=== PATIENT | male | born 2000 | race Hispanic/Latino ===

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

== ENCOUNTER 2023-06-10 19:07 | Emergency (ER) | payer SELFPAY ==
[2023-06-10 20:57] LABS: Absolute Lymphocytes (CBC) 1.4 K/uL (0.7-4.9); Hematocrit 43.1 % (39.6-49.0); Lymphocytes % 15.1 % (15.3-44.8); MCV 88.2 fL (80-100); MPV 9.4 fL (7.6-11.3); Platelets 152 thou/uL (152-406); RBC Red Blood Cell Count 4.89 M/uL (4.33-5.43); Specific Gravity 1.012 (1.005-1.030); Urine Bilirubin NEGATIVE (Negative); Urine Blood Negative (Negative); Urine Clarity Clear (Clear); Urine Color Colorless (Yellow); Urine Glucose NEGATIVE (Negative); Urine Protein NEGATIVE (Negative); Urine Urobilinogen Normal (Normal)
--- NOTE | 2023-06-10 21:16 | RAD REPORT ---
EXAM DESCRIPTION: CT - Stone Protocol - 06/10/2023 8:36 pm CLINICAL HISTORY: right flank pain COMPARISON: No comparisons TECHNIQUE: Thin cut axial CT imaging of the abdomen and pelvis was performed without IV contrast. Mu ltiplanar reformats were generated and reviewed. All CT scans are performed using dose optimization technique as appropriate and may include automated exposure control or mA/KV adjustment according to patient size. FINDINGS: No suspicious findings in the lung bases. The liver, spleen, adrenal glands, and pancreas show no suspicious findings. Gallbladder and biliary tree are also without suspicious finding. Symmetric renal contour, without suspicious parenchymal findings within limits of noncontrast techniq ue. No evidence of radiopaque calculi or hydroureteronephrosis. No dilated bowel loops or bowel wall thickening. No free air, free fluid or inflammatory stranding. N o hernia, mass or bulky lymphadenopathy. The urinary bladder is without significant finding. No suspicious bony findings. IMPRESSION: No acute intra-abdominal process.
[2023-06-10 21:19] LABS: Albumin 3.8 g/dL (3.4-5.0); Bilirubin Total 0.2 mg/dL (0.2-1.0); Protein, Total 7.7 g/dL (6.4-8.2)
[2023-06-10 21:20] LABS: Potassium 3.8 mEq/L (3.5-5.1)
[2023-06-10] MEDS ORDERED: CYCLOBENZAPRINE 10 MG TAB ONE (21:55)
[2023-06-10] MEDS ORDERED: KETOROLAC 30 MG/ML INJ ONE (21:55)
--- NOTE | 2023-06-10 22:24 | EDPHYS ---
Physician Documentation [facility] Name: Alexsander Mcgowan Age: 23 yrs Sex: Male : 2000 Arrival Date: 06/10/2023 Time: 19:07 Bed 11 Private MD: ED Physician Dm Lara HPI: 06/10 20:00 This 23 yrs old Male presents to ER via Ambulatory with complaints of cp Abdominal Pain. 20:00 The patient presents with abdominal pain right flank. cp Historical: - Allergies: 19:32 No Known Allergies; kd3 - Immunization history:: Adult Immunizations up to date. - Social history:: Smoking status: Patient denies any tobacco usage or history of. Vital Signs: 19:31 BP 126 / 78; Pulse 58; Resp 17; Temp 99.6(O); Pulse Ox 100% ; Weight 63.5 kg; Height 5 kd3 ft. 7 in. ; 21:48 BP 128 / 70; Pulse 58; Resp 16; Pulse Ox 100% on R/A; Pain 10/10; iw 22:33 BP 113 / 73; Pulse 51; Resp 18; Pulse Ox 100% on R/A; Pain 3/10; iw 19:31 Body Mass Index 21.93 (63.50 kg, 170.18 cm) kd3 21:48 Pain Scale: Adult iw 22:33 Pain Scale: Adult iw MDM: 19:44 Patient medically screened. 06/10 19:45 Order name: CBC with Diff; Complete Time: 21:21 06/10 21:22 Interpretation: Normal except: NIRU% 74.5; LYM% 15.1. 06/10 19:45 Order name: CMP; Complete Time: 21:21 06/10 21:22 Interpretation: Normal except: CL 108; GLOB 3.9; A/G 1.0. 06/10 19:45 Order name: Lipase; Complete Time: 21:21 06/10 21:42 Interpretation: Reviewed. 06/10 19:45 Order name: Urinalysis w/ reflexes; Complete Time: 21:21 06/10 21:42 Interpretation: Reviewed. 06/10 19:45 Order name: CT Stone Protocol; Complete Time: 21:21 06/10 21:22 Interpretation: Report reviewed. 06/10 21:23 Order name: XRAY Chest (1 view) cp 06/10 19:45 Order name: IV Saline Lock cp 06/10 19:45 Order name: Labs collected and sent cp Administered Medications: 21:48 Drug: Ketorolac IVP 15 mg IVP once Route: IVP; Site: left antecubital; iw 22:38 Follow up: Response: No adverse reaction; Pain is decreased iw 21:48 Drug: Cyclobenzaprine PO 10 mg PO once Route: PO; iw 22:38 Follow up: Response: No adverse reaction; Pain is decreased iw Disposition Summary: 06/10/23 22:23 Discharge Ordered Notes: Location: Home cp Problem: new cp Symptoms: have improved cp Condition: Stable cp Diagnosis - Other abdominal pain cp Followup: cp - With: Private Physician - When: 2 - 3 days - Reason: Worsening of condition Discharge Instructions: - Discharge Summary Sheet cp - Musculoskeletal Pain cp Forms: - Medication Reconciliation Form cp - Thank You Letter cp - Antibiotic Education cp - Prescription Opioid Use cp - Patient Portal Instructions cp - Leadership Thank You Letter cp Prescriptions: - Naprosyn 500 mg Oral tablet - take 1 tablet ORAL route 2 times per day take with food; 20 tablet; Refills: 0, cp Product Selection Permitted - Cyclobenzaprine 10 mg Oral tablet - take 1 tablet ORAL route every 8 hours As needed; 20 tablet; Refills: 0, cp Product Selection Permitted Addendum: 06/12/2023 19:34 I was immediately available on-site in the Emergency Department for consultation in the m s3 care of the patient. Signatures: Dispatcher [employer] Mindy Earl RN RN iw Page, Corey, PA PA cp Sims, Marcus, DO DO ms3 Terrie Tolbert RN RN kd3
--- NOTE | 2023-06-10 22:24 | ER ---
Nurse's Notes [facility] Name: Alexsander Mcgowan Age: 23 yrs Sex: Male : 2000 Arrival Date: 06/10/2023 Time: 19:07 Bed 11 Private MD: Diagnosis: Other abdominal pain Presentation: 06/10 19:32 Coronavirus screen: Vaccine status: Patient reports receiving the 2nd dose of the covid kd3 vaccine. Ebola Screen: No symptoms or risks identified at this time. Initial Sepsis Screen: Does the patient meet any 2 criteria? No. Patient's initial sepsis screen is negative. Does the patient have a suspected source of infection? No. Patient's initial sepsis screen is negative. Risk Assessment: Do you want to hurt yourself or someone else? Patient reports no desire to harm self or others. Onset of symptoms was June 10, 2023. 19:32 Method Of Arrival: Ambulatory 3 19:32 Acuity: ELVIN 3 kd3 19:32 Chief complaint: Patient states: My right upper side area is hurting. It has hurt for 2 iw days. I don't think it is my stomach. It just started to hurt randomly. It does go into my back. I do not feel any pain with urination. Triage Assessment: 19:32 General: Appears in no apparent distress. Behavior is calm, cooperative. Pain: kd3 Complains of pain in right upper quadrant. GI: Abdomen is non-distended. Historical: - Allergies: 19:32 No Known Allergies; kd3 - Immunization history:: Adult Immunizations up to date. - Social history:: Smoking status: Patient denies any tobacco usage or history of. Screenin:00 [facility] ED Fall Risk Assessment (Adult) History of falling in the last 3 months, iw including since admission No falls in past 3 months (0 pts) Confusion or Disorientation No (0 pts) Intoxicated or Sedated No (0 pts) Impaired Gait No (0 pts) Mobility Assist Device Used No (0 pt) Altered Elimination No (0 pt) Score/Fall Risk Level 0 - 2 = Low Risk Maintained a safe environment, Provided non-skid footwear, Hourly rounding (assess needs \T\ fall precautionary measures) done. Abuse screen: Denies threats or abuse. Nutritional screening: No deficits noted. Tuberculosis screening: No symptoms or risk factors identified. Assessment: 20:00 Pain: Complains of pain in abdomen and right upper quadrant Pain radiates to back Pain iw currently is 10 out of 10 on a pain scale. Quality of pain is described as sharp, shooting, Pain began 2-3 days ago. Is continuous, Aggravated by exercise, repositioning. Neuro: Level of Consciousness is awake, alert, obeys commands, Oriented to person, place, time, situation, Appropriate for age. Cardiovascular: Capillary refill < 3 seconds Patient's skin is warm and dry. Respiratory: Airway is patent Respiratory effort is even, unlabored, Respiratory pattern is regular, symmetrical. GI: Bowel sounds present X 4 quads. Abd is soft X 4 quads. 22:34 General: Appears uncomfortable, well groomed, well developed, well nourished, Behavior iw is calm, cooperative, appropriate for age, Reports My right upper side area is hurting. It has hurt for 2 days. I don't think it is my stomach. It just started to hurt randomly. It does go into my back. I do not feel any pain with urination. Vital Signs: 19:31 BP 126 / 78; Pulse 58; Resp 17; Temp 99.6(O); Pulse Ox 100% ; Weight 63.5 kg; Height 5 kd3 ft. 7 in. ; 21:48 BP 128 / 70; Pulse 58; Resp 16; Pulse Ox 100% on R/A; Pain 10/10; iw 22:33 BP 113 / 73; Pulse 51; Resp 18; Pulse Ox 100% on R/A; Pain 3/10; iw 19:31 Body Mass Index 21.93 (63.50 kg, 170.18 cm) kd3 21:48 Pain Scale: Adult iw 22:33 Pain Scale: Adult iw ED Course: 19:11 Patient arrived in ED. rg4 19:12 Olegario Mancera PA is PHCP. cp 19:12 Dm Lara DO is Attending Physician. cp 19:32 Triage completed. kd3 19:32 Arm band placed on right wrist. kd3 20:00 Patient has correct armband on for positive identification. Bed in low position. Call iw light in reach. Side rails up X 1. Provided Education on: POC. Verbalized understanding.. 20:00 No provider procedures requiring assistance completed. Flushed left antecubital. iw 20:38 CT Stone Protocol In Process Unspecified. EDMS 20:54 Inserted saline lock: 20 gauge in left antecubital area, using aseptic technique. Blood rv collected. 21:38 Mindy Cortez, RN is Primary Nurse. iw 21:55 XRAY Chest (1 view) In Process Unspecified. EDMS 22:37 IV discontinued, intact, bleeding controlled, No redness/swelling at site. Pressure iw dressing applied. Administered Medications: 21:48 Drug: Ketorolac IVP 15 mg IVP once Route: IVP; Site: left antecubital; iw 22:38 Follow up: Response: No adverse reaction; Pain is decreased iw 21:48 Drug: Cyclobenzaprine PO 10 mg PO once Route: PO; iw 22:38 Follow up: Response: No adverse reaction; Pain is decreased iw Medication: 20:00 VIS not applicable for this client. iw Outcome: 22:23 Discharge ordered by MD. cp 22:37 Discharged to home ambulatory, iw 22:37 Condition: stable 22:37 Discharge instructions given to patient, Instructed on discharge instructions, follow up and referral plans. medication usage, Demonstrated understanding of instructions, follow-up care, medications, Prescriptions given X 2, 22:37 Patient left the ED. iw Signatures: Dispatcher [employer] EDMS Mindy Cortez, RN RN iw Olegario Mancera PA PA cp Garcia, Rubi rg4 Frank Rivera RN RN Terrie Tolbert RN RN kd3 Corrections: (The following items were deleted from the chart) 22:34 19:32 Chief complaint: Patient states: My right upper side area is hurting. It has hurt iw for 2 days. I don't think it is my stomach. It just started to hurt randomly. It does go into my back. I do not feel any pain with urination. kd3
--- NOTE | 2023-06-10 23:02 | RAD REPORT ---
EXAM DESCRIPTION: Dandy Single View06/10/2023 9:53 pm CLINICAL HISTORY: right flank pain COMPARISON: No comparisons TECHNIQUE: Portable AP view of the chest. FINDINGS: The lungs are clear. No pneumothorax or effusion. The cardiomediastinal contours are unre markable. IMPRESSION: No acute cardiopulmonary process.
[2023-06-10 23:03] VITALS: TEMP 99.6; O2SAT 100
[2023-06-10 23:06] VITALS: BP 113/73
== END 2023-06-10 22:37 | disposition home or self-care (01) ==
LOC: ER 19:07
DX: R10.31 Right lower quadrant pain (principal)
CPT/HCPCS: 36415; 71045; 74176; 76377; 80053; 81003; 83690; 85025; 96374; 99284